=== PATIENT | female | born 1980 | race Two or more races ===

== ENCOUNTER 2016-11-24 11:35 | Outpatient (CLI) | payer BC ==
[2016-11-24 12:47] LABS: BASOPHILS % (AUTO) 0.4 % (0.0-2.0); DIFF TOTAL % 100 %; EOSINOPHILS # (AUTO) 0.2 /CMM (0.0-0.7); EOSINOPHILS % (AUTO) 2.4 % (0.0-6.0); HEMATOCRIT 39 % (33-45); HEMOGLOBIN 12.8 g/dL (11.5-14.8); LYMPHOCYTES # (AUTO) 2.3 /CMM (0.8-4.8); LYMPHOCYTES % (AUTO) 25.4 % (20.0-44.0); MEAN CORPUSCULAR HEMOGLOBIN 29 PG (26.0-33.0); MEAN CORPUSCULAR HGB CONC 33 g/dl (31.0-36.0); MEAN CORPUSCULAR VOLUME 88 fL (82-100); MONOCYTES # (AUTO) 0.7 /CMM (0.1-1.30); MONOCYTES % (AUTO) 7.8 % (2.0-12.0); NEUTROPHILS # (AUTO) 5.7 /CMM (1.8-8.9); PLATELET COUNT (AUTO) 343 /CMM (150-450); RED BLOOD CELL COUNT(AUTO) 4.37 MIL/uL (4.0-5.2)
[2016-11-24 13:55] LABS: ALBUMIN 3.8 g/dL (3.4-5.0); BILIRUBIN,TOTAL 0.2 mg/dL (0.2-1.0); CALCIUM, SERUM 8.8 mg/dL (8.5-10.1); CREATININE 0.7 mg/dL (0.6-1.3); POTASSIUM 4.3 mmol/L (3.5-5.1); TOTAL PROTEIN, SERUM 7.3 g/dL (6.4-8.2)
[2016-11-24 21:57] LABS: THYROID STIMULATING HORMONE 1.524 uIU/mL (0.358-3.74)
== END 2016-11-24 23:59 | disposition home or self-care (01) ==
LOC: LAB 11:35
PROVIDERS: ATTEND Family Medicine
DX: Z33.1 Pregnant state, incidental (principal); N39.0 Urinary tract infection, site not specified
CPT/HCPCS: 36415; 80053-TC; 84436-TC; 84443-TC; 84702-TC; 85025-TC; 87086-TC

== ENCOUNTER 2016-11-25 20:30 | Emergency (ER) | payer BC ==
[~2016-11-25] VITALS: Ht 154.9 cm; Wt 62.1 kg
[2016-11-25 22:43] LABS: BASOPHILS % (AUTO) 0.4 % (0.0-2.0); DIFF TOTAL % 100 %; EOSINOPHILS # (AUTO) 0.3 /CMM (0.0-0.7); EOSINOPHILS % (AUTO) 2.2 % (0.0-6.0); HEMATOCRIT 39 % (33-45); HEMOGLOBIN 12.8 g/dL (11.5-14.8); LYMPHOCYTES # (AUTO) 2.8 /CMM (0.8-4.8); LYMPHOCYTES % (AUTO) 23.3 % (20.0-44.0); MEAN CORPUSCULAR HEMOGLOBIN 29 PG (26.0-33.0); MEAN CORPUSCULAR HGB CONC 33 g/dl (31.0-36.0); MEAN CORPUSCULAR VOLUME 88 fL (82-100); MONOCYTES # (AUTO) 0.8 /CMM (0.1-1.30); MONOCYTES % (AUTO) 7.2 % (2.0-12.0); NEUTROPHILS # (AUTO) 7.9 /CMM (1.8-8.9); NEUTROPHILS % (AUTO) 66.9 % (43.0-81.0); PLATELET COUNT (AUTO) 352 /CMM (150-450); RED BLOOD CELL COUNT(AUTO) 4.38 MIL/uL (4.0-5.2); WHITE BLOOD COUNT (AUTO) 11.8 K/uL (4.3-11.0)
[2016-11-25 22:48] LABS: ADD UA MICROSCOPIC NO; KETONES,URINE NEGATIVE (NEGATIVE); LEUKOCYTE ESTERASE ,URINE NEGATIVE (NEGATIVE)
[2016-11-25 22:54] LABS: CALCIUM, SERUM 8.7 mg/dL (8.5-10.1); CREATININE 0.7 mg/dL (0.6-1.3); POTASSIUM 3.9 mmol/L (3.5-5.1)
[2016-11-25 22:56] LABS: INR 0.97 (0.87-1.13); PROTHROMBIN TIME 10.5 SECS (9.5-12.7)
[2016-11-26 00:25] VITALS: BP 113/90
== END 2016-11-26 00:29 | disposition home or self-care (01) ==
LOC: ER 20:35
DX: O26.891 Other specified pregnancy related conditions, first trimester (principal); R10.9 Unspecified abdominal pain; N83.292 Other ovarian cyst, left side; Z3A.01 Less than 8 weeks gestation of pregnancy; Z88.1 Allergy status to other antibiotic agents
CPT/HCPCS: 36415; 76856-TC; 80048-TC; 81000-TC; 84702-TC; 85025-TC; 85730-TC; A4606; Z7610

== ENCOUNTER 2016-12-02 09:04 | Outpatient (CLI) | payer BC ==
[2016-12-02 15:58] LABS: THYROID STIMULATING HORMONE 1.695 uIU/mL (0.358-3.74)
== END 2016-12-02 23:59 | disposition home or self-care (01) ==
LOC: LAB 09:04
PROVIDERS: ATTEND Family Medicine
DX: R53.83 Other fatigue (principal)
CPT/HCPCS: 36415; 82306; 82728-TC; 83540-TC; 84436-TC; 84443-TC

== ENCOUNTER 2017-11-28 09:57 | Inpatient (IN) | payer BC ==
[~2017-11-28] VITALS: Ht 154.9 cm; Wt 65.3 kg
[2017-11-28 10:35] VITALS: BP 113/75
--- NOTE | 2017-11-28 10:35 | NUR ---
MS RN NOTES 37 YEARS OLD FEMALE, A/O 4 ADMITTED FOR SURGERY TODAY BY DR. MORENO. VS TAKEN AND RECORDED, PATIENT IS AMBULATORY, CONTINENT OF BOWEL AND BLADDER FUNCTION, SKIN INTACT. DENIES PAIN. ORIENTED TO ROOM, UNIT, STAFF. PLACE CALL LIGHT WITHIN REACH. WILL CONT TO MONITOR.
[2017-11-28] MEDS ORDERED: IV LR 1000 ML 1,000 ML IV PRN (11:00)
--- NOTE | 2017-11-28 11:46 | NUR ---
URINE COLLECTED, SENT TO LAB FOR TEST. PATIENT IS TAKEN TO OR FOR SURGERY BY DR. MORENO
[2017-11-28] MEDS ORDERED: ROCURONIUM BROMIDE 50 MG/5 ML ONE (11:52)
[2017-11-28] MEDS ORDERED: MIDAZOLAM HCL 2 MG/2ML VIAL ONE (11:52)
[2017-11-28] MEDS ORDERED: CLINDAMYCIN 900 MG/6 ML VIAL ONE (11:53)
[2017-11-28] MEDS ORDERED: BUPIVACAINE 0.5 % PF 150 MG/30 ML VIAL ONE (12:38)
[2017-11-28 14:00] VITALS: BP 103/77
[2017-11-28] MEDS ORDERED: HYDROCODONE/APAP 5/325MG 1 EACH TABLET PO PRN ×2 (14:00)
[2017-11-28] MEDS ORDERED: ONDANSETRON HCL/PF 4 MG/2 ML VIAL IVP PRN (14:00)
--- NOTE | 2017-11-28 14:05 | NUR ---
PATIENT IS BACK FROM OR, S/P SCOPE JACQUI BY DR. MORENO. VS TAKEN AND RECORDED, C/O NAUSEA, GIVEN ZOFRAN 4MG IV PRN, WILL REASSESS. ICE CHIPS, WARM BLANKET PROVIDED. ABDOMEN SURGICAL INCISION X2, DRESSING IN PLACE, NO BLEEDING NOTED. WILL CONT TO MONITOR CLOSELY.
[2017-11-28 14:33] VITALS: BP 123/79
--- NOTE | 2017-11-28 15:19 | NUR ---
VS REMAINS STABLE, DENIES ANY PAIN. ZOFRAN 4MG IV PRN, EFFECTIVE, NAUSEA IMPROVED, NO EPISODE OF VOMITING. PATIENT AMBULATES 50 FEET WITHOUT DIFFICULTY, DENIES HEADACHE, NO DIZZINESS. PATIENT PREFERS TO GO HOME TODAY. CALLED SPOKE TO DR. MORENO, PER MD PATIENT CAN BE DISCHARGE HOME TODAY AND F/U WITH HER IN 1 WEEK, PATIENT MADE AWARE.
[2017-11-28 15:51] VITALS: BP 107/76
--- NOTE | 2017-11-28 16:48 | NUR ---
MS READING INTERVENTION TEACHER PATIENT HAS BEEN CLEARED FOR DISCHARGE BY MD, PATIENT AMBULATING WITHOUT OF PAIN. NO N/V, VS REMAINS STABLE. NO SOB, ON ROOM AIR. ABDOMINAL INCISION, NO BLEEDING. DRESSING IN PLACE. IVC IN LEFT AC REMOVED, GAUZE APPLIED. DISCHARGE INSTRUCTION GIVEN TO THE PATIENT, VERBALIZED UNDERSTANDING. PATIENT IS AWARE TO FOLLOW UP WITH DR. MORENO IN 1 WEEK. BELONGINGS CHECKED AND SEND WITH THE PATIENT UPON DC. PATIENT LEFT HOSP IN STABLE CONDITION VIA PRIVATE CAR, ACCOMPANIED BY HER .
== END 2017-11-28 16:48 | disposition home or self-care (01) | DRG 337 ==
LOC: DS 09:57 → MEDSG2 10:00
PROVIDERS: ADMIT Obstetrics & Gynecology; ATTEND Obstetrics & Gynecology
PROC: 0DNU4ZZ Release Omentum, Percutaneous Endoscopic Approach (ICD-10-PCS; principal; 2017-11-28 12:18)
PROC: 0U904ZZ Drainage of Right Ovary, Percutaneous Endoscopic Approach (ICD-10-PCS; principal; 2017-11-28 12:18)
PROC: 0U954ZZ Drainage of Right Fallopian Tube, Percutaneous Endoscopic Approach (ICD-10-PCS; principal; 2017-11-28 12:18)
DX: N99.4 Postprocedural pelvic peritoneal adhesions (principal); N70.11 Chronic salpingitis; N83.201 Unspecified ovarian cyst, right side; N83.8 Other noninflammatory disorders of ovary, fallopian tube and broad ligament; Z98.890 Other specified postprocedural states
CPT/HCPCS: 84703-TC; 87081-TC; A6402; J1100; J1885; J2250; J2405; J2704; J2710; J3490; J7120; Z7610

== ENCOUNTER 2018-01-13 09:39 | Outpatient (CLI) | payer BC ==
[2018-01-13 10:19] LABS: BASOPHILS % (AUTO) 0.7 % (0.0-2.0); HEMATOCRIT 38 % (33-45); LYMPHOCYTES # (AUTO) 2.6 /CMM (0.8-4.8); LYMPHOCYTES % (AUTO) 39.2 % (20.0-44.0); MEAN CORPUSCULAR HGB CONC 34 g/dl (31.0-36.0); MEAN CORPUSCULAR VOLUME 88 fL (82-100); MONOCYTES # (AUTO) 0.5 /CMM (0.1-1.30); MONOCYTES % (AUTO) 7.9 % (2.0-12.0); NEUTROPHILS # (AUTO) 3.2 /CMM (1.8-8.9); NEUTROPHILS % (AUTO) 48.2 % (43.0-81.0); PLATELET COUNT (AUTO) 329 /CMM (150-450); RDW COEFFICIENT OF VARIATION 13.8 (11.5-15.0); RED BLOOD CELL COUNT(AUTO) 4.36 MIL/uL (4.0-5.2); WHITE BLOOD COUNT (AUTO) 6.7 K/uL (4.3-11.0)
[2018-01-13 11:01] LABS: ALBUMIN 3.9 g/dL (3.4-5.0); BILIRUBIN,TOTAL 0.4 mg/dL (0.2-1.0); CALCIUM, SERUM 8.5 mg/dL (8.5-10.1); CREATININE 0.8 mg/dL (0.6-1.3); TOTAL PROTEIN, SERUM 7.7 g/dL (6.4-8.2)
[2018-01-13 18:32] LABS: URIC ACID 2.1 mg/dL (2.6-7.2)
== END 2018-01-13 23:59 | disposition home or self-care (01) ==
LOC: LAB 09:39
PROVIDERS: ATTEND Family Medicine
DX: M25.551 Pain in right hip (principal); Z72.820 Sleep deprivation
CPT/HCPCS: 36415; 80053-TC; 82306; 82728-TC; 82746; 83540-TC; 84550-TC; 85025-TC; 86431-TC

== ENCOUNTER 2018-01-30 09:30 | Outpatient (CLI) | payer BC | END 2018-01-30 23:59 | disposition home or self-care (01) | LOC: MRI 09:30 | PROVIDERS: ATTEND Family Medicine | DX: M48.07 Spinal stenosis, lumbosacral region (principal); M51.26 Other intervertebral disc displacement, lumbar region; M76.01 Gluteal tendinitis, right hip; M76.02 Gluteal tendinitis, left hip; D25.1 Intramural leiomyoma of uterus | CPT/HCPCS: 72148-TC; 73721-TC ==